=== PATIENT | male | born 1995 | race African-American/Black ===

== ENCOUNTER 2023-02-26 18:38 | Emergency (ER) | payer BC ==
[2023-02-26] MEDS ORDERED: Ketorolac Tromethamine 30 MG/ML VIAL ONE (20:51)
== END 2023-02-26 21:29 | disposition home or self-care (01) ==
LOC: ERS 18:38
DX: R07.81 Pleurodynia (principal)
CPT/HCPCS: 71045; 93005; 96372; J1885

== ENCOUNTER 2024-04-12 20:30 | Emergency (ER) | payer BC, OTHER ==
[2024-04-12] MEDS ORDERED: Ibuprofen 800 MG TAB ONE (21:23)
[2024-04-12] MEDS ORDERED: predniSONE 20 MG TAB ONE (21:55)
[2024-04-12] MEDS ORDERED: Ondansetron ODT 4 MG TAB ONE (21:55)
[2024-04-12] MEDS ORDERED: Pseudoephedrine HCl 30 MG TAB PO SCH (22:15)
== END 2024-04-12 23:47 | disposition home or self-care (01) ==
LOC: ERS 20:30
DX: J10.1 Influenza due to other identified influenza virus with other respiratory manifestations (principal)
CPT/HCPCS: 71046; 87428; 93005; J7512; Q0162